=== PATIENT | female | born 2000 | race Two or more races ===

== ENCOUNTER 2021-02-03 21:09 | Emergency (ER) | payer OTHER ==
[~2021-02-03] VITALS: Ht 162.6 cm; Wt 58.1 kg
== END 2021-02-03 23:19 | disposition home or self-care (01) ==
LOC: ER 21:09 → EDSEX 21:50 → ER 23:19
DX: O20.0 Threatened abortion (principal)

== ENCOUNTER 2021-05-31 07:17 | Inpatient (IN) | payer OTHER ==
[~2021-05-31] VITALS: Ht 160 cm; Wt 64.9 kg
[2021-05-31] MEDS ORDERED: PRENATAL TABLE1 EAC2 (08:27)
== END 2021-06-02 10:51 | disposition home or self-care (01) | DRG 807 ==
LOC: SURG 07:17 → LDR 07:17 → SURG 06-01 01:03 → SURH 06-01 15:32
PROVIDERS: ADMIT Obstetrics & Gynecology; ATTEND Obstetrics & Gynecology
PROC: 10E0XZZ Delivery of Products of Conception, External Approach (ICD-10-PCS; principal; 2021-05-31)
PROC: 3E0P7VZ Introduction of Hormone into Female Reproductive, Via Natural or Artificial Opening (ICD-10-PCS; 2021-05-31)
PROC: 10907ZC Drainage of Amniotic Fluid, Therapeutic from Products of Conception, Via Natural or Artificial Opening (ICD-10-PCS; 2021-05-31)
PROC: 4A1HXFZ Monitoring of Products of Conception, Cardiac Rhythm, External Approach (ICD-10-PCS; 2021-05-31)
DX: O36.4XX0 Maternal care for intrauterine death, not applicable or unspecified (principal); Z37.1 Single stillbirth; Z3A.27 27 weeks gestation of pregnancy; Z20.822 Contact with and (suspected) exposure to COVID-19

== ENCOUNTER 2022-12-18 14:28 | Outpatient (CLI) | payer OTHER ==
[~2022-12-18 14:28] MED LIST: PRENATAL TABLE1 EAC2
== END 2022-12-18 15:45 | disposition home or self-care (01) ==
LOC: PRENATAL 14:28
PROVIDERS: ATTEND Obstetrics & Gynecology Maternal & Fetal Medicine
DX: O35.9XX0 Maternal care for (suspected) fetal abnormality and damage, unspecified, not applicable or unspecified (principal); O35.3XX0 Maternal care for (suspected) damage to fetus from viral disease in mother, not applicable or unspecified; Z3A.20 20 weeks gestation of pregnancy

== ENCOUNTER 2023-03-12 13:50 | Outpatient (CLI) | payer OTHER | END 2023-03-12 15:46 | disposition home or self-care (01) | LOC: PRENATAL 13:50 | PROVIDERS: ATTEND Obstetrics & Gynecology Maternal & Fetal Medicine | DX: O26.849 Uterine size-date discrepancy, unspecified trimester (principal); O36.8199 Decreased fetal movements, unspecified trimester, other fetus; Z3A.12 12 weeks gestation of pregnancy ==

== ENCOUNTER 2023-04-08 18:54 | Inpatient (IN) | payer OTHER ==
[~2023-04-08] VITALS: Ht 157.5 cm; Wt 79.2 kg
[2023-04-08] MEDS ORDERED: IRON236 MG PO (20:10)
[2023-04-08] MEDS ORDERED: ECOTRIN81 MG PO (20:11)
== END 2023-04-09 20:03 | disposition home or self-care (01) | DRG 833 ==
LOC: LDR 18:54
PROVIDERS: ADMIT Obstetrics & Gynecology; ATTEND Obstetrics & Gynecology
PROC: 4A1HXCZ Monitoring of Products of Conception, Cardiac Rate, External Approach (ICD-10-PCS; principal; 2023-04-08)
PROC: BY4FZZZ Ultrasonography of Third Trimester, Single Fetus (ICD-10-PCS; 2023-04-09)
DX: O36.8330 Maternal care for abnormalities of the fetal heart rate or rhythm, third trimester, not applicable or unspecified (principal); O26.843 Uterine size-date discrepancy, third trimester; O36.8130 Decreased fetal movements, third trimester, not applicable or unspecified; Z3A.35 35 weeks gestation of pregnancy; Z20.822 Contact with and (suspected) exposure to COVID-19

== ENCOUNTER 2023-04-10 17:20 | Emergency (ER) | payer OTHER ==
[~2023-04-10] VITALS: Ht 157.5 cm; Wt 78.5 kg
[~2023-04-10 17:20] MED LIST changes: +ECOTRIN81 MG PO; +IRON236 MG PO
== END 2023-04-10 18:58 | disposition home or self-care (01) ==
LOC: ER 17:20
DX: O26.893 Other specified pregnancy related conditions, third trimester (principal); Z3A.36 36 weeks gestation of pregnancy; R21 Rash and other nonspecific skin eruption; Z91.040 Latex allergy status; Z91.048 Other nonmedicinal substance allergy status

== ENCOUNTER 2023-04-16 17:41 | Inpatient (IN) | payer OTHER ==
[~2023-04-16] VITALS: Ht 157.5 cm; Wt 77.6 kg
[2023-04-20] MEDS ORDERED: ACETAMINOPHEN-1 EAC2 PO (12:48)
[2023-04-20] MEDS ORDERED: IBUPROFEN600 MG PO (12:48)
[2023-04-20] MEDS ORDERED: DOCUSATE SODIU100 MG PO (12:49)
== END 2023-04-20 13:12 | disposition home or self-care (01) | DRG 788 ==
LOC: LDR 17:41 → OB/GYN 17:41 → O/R 04-17 15:32 → OB/GYN 04-17 16:23
PROVIDERS: ADMIT Student in an Organized Health Care Education/Training Program; ATTEND Student in an Organized Health Care Education/Training Program
PROC: 3E0P7VZ Introduction of Hormone into Female Reproductive, Via Natural or Artificial Opening (ICD-10-PCS; 2023-04-16)
PROC: 4A1HXCZ Monitoring of Products of Conception, Cardiac Rate, External Approach (ICD-10-PCS; 2023-04-16)
PROC: 3E033VJ Introduction of Other Hormone into Peripheral Vein, Percutaneous Approach (ICD-10-PCS; 2023-04-17)
PROC: 10D00Z1 Extraction of Products of Conception, Low, Open Approach (ICD-10-PCS; principal; 2023-04-17 15:00)
DX: O36.8330 Maternal care for abnormalities of the fetal heart rate or rhythm, third trimester, not applicable or unspecified (principal); Z3A.37 37 weeks gestation of pregnancy; Z20.822 Contact with and (suspected) exposure to COVID-19; Z37.0 Single live birth

== ENCOUNTER 2025-09-15 11:00 | Day surgery (SDC) | payer OTHER ==
[2025-09-13 09:55] VITALS: BP 106/72
[2025-09-13 10:29] LABS: BASO % 0.5 % (0.1-1.2); EOS # 0.22 (0.04-0.54); EOS % 3.3 % (0.7-7.0); LYMPH # 2.36 (1.18-3.74); LYMPH % 35.5 % (19.3-53.1); MEAN PLATELET VOLUME 9.20 fl (9.4-12.4); MONO # 0.42 (0.24-0.82); MONO % 6.3 % (4.7-12.5); NEUT # 3.60 (1.56-6.13); NEUT % 54.2 % (34.0-71.1); RED CELL DISTRIBUTION WIDTH 13.2 % (11.6-14.4)
[2025-09-13 10:53] LABS: INR 1.01
[2025-09-13 11:21] LABS: ALT/SGPT 20.0 U/L (12-78); AST/SGOT 12.0 U/L (15-37); BILIRUBIN TOTAL 0.82 mg/dL (0.3-1.2); BUN CREA RATIO 15.0 (7.0-25.0); CREATININE SERUM 0.68 mg/dL (0.55-1.02); GFR 106.3; GLOBULINA 4.1 G/DL (2.4-3.5); GLUCOSE FASTING 83.0 mg/dL (65-100); OSMOLALITY SERUM 276.0 MOSM/KG (275-295); TSH 0.77 uIU/mL (0.358-3.74)
[2025-09-13 12:21] LABS: URINE APPEARANCE Clear; URINE BILIRRUBIN Negative (NEGATIVE); URINE BLOOD Negative; URINE COLOR Yellow; URINE GLUCOSE Negative (NEGATIVE); URINE KETONE Negative (NEGATIVE); URINE LEUKOCYTE Negative; URINE NITRATE Negative; URINE PROTEIN Negative (NEGATIVE); URINE UROBILINOGEN 0.2 E.U./dl
[2025-09-13 12:25] LABS: URINE BACTERIA 577.1 uL (0.0-1933); URINE EPITHELIAL CELLS 25.8 uL (0.0-38.8); URINE RBC 5.5 uL (0.0-20.8); URINE WBC 13.6 uL (0.0-23.2)
[2025-09-13 12:55] LABS: URINE CAST 0.00 uL (0.0-1.40)
[~2025-09-15] VITALS: Ht 160 cm; Wt 68.0 kg
[~2025-09-15 11:00] MED LIST changes: +ACETAMINOPHEN-1 EAC2 PO; +CEFOXITIN SODIUM 2,000 MG VIAL IV ONE; +DOCUSATE SODIU100 MG PO; +IBUPROFEN600 MG PO
[2025-09-15] MEDS ORDERED: POVIDONE-IODINE 118 ML BOTT TOP ONE (11:08)
[2025-09-15] MEDS ORDERED: NAPR500T14 PO (12:43)
[2025-09-15] MEDS ORDERED: AVIDOXY100 MG PO (12:43)
[2025-09-15] MEDS ORDERED: MORPHINE SULFATE 4 MG/ML VIAL IV PRN (12:45)
[2025-09-15] MEDS ORDERED: PROMETHAZINE HCL 50 MG/ML AMPUL IM ONE (12:45)
== END 2025-09-15 17:15 | disposition home or self-care (01) ==
LOC: CIR.AMB 11:00
PROVIDERS: ATTEND Obstetrics & Gynecology
DX: D25.0 Submucous leiomyoma of uterus (principal); N92.0 Excessive and frequent menstruation with regular cycle; N84.0 Polyp of corpus uteri